=== PATIENT | male | born 1990 | race Caucasian/White ===

== ENCOUNTER 2016-08-12 17:53 | Emergency (ER) | payer OTHER ==
[~2016-08-12] VITALS: Ht 167.6 cm; Wt 66.2 kg
--- NOTE | 2016-08-12 18:52 | ED GENERAL ADULT ---
History of Present Illness General Chief Complaint: ETOH/Drug Related Complaint Stated Complaint: OVERDOSE Source: patient Exam Limitations: no limitations Vital Signs & Intake/Output Vital Signs & Intake/Output Vital Signs Date Time Temp Pulse Resp B/P Pulse O2 O2 Flow FiO2 Ox Delivery Rate 08/12 2004 98.6 94 18 134/88 99 Room Air Room Air 08/12 1804 98.8 108 18 139/89 98 Room Air Allergies Coded Allergies: No Known Allergies (08/12/16) Reconcile Medications No Known Home Medications Triage Note: 25 YO MALE DIANE. PT WAS FOUND UNRESPONSIVE IN CAR IN PARKING LOT WITH NEEDLE STICKING INTO ARM PER EMS. PT RECIEVED 2 NASAL SPRAYS OF NARCAN IN ROUTE IN ER. PT ARRIVES ALERT & ORIENTED X3. DENIE SI/HI. STATES HE HAS BEEN SOBER FOR APPROX 5 YEARS BUT HAS BEEN STRESSED LATELY SO DEICDED TO USE TODAY. PT RA SATS 98% AT THIS TIME. SECUITY AT BEDSIDE FOR WANDING. PT HAS 1 VALUBLES BAG AND 2 BELONING BAGS. PT CALM AND COOPERATIVE. PT CHANGED INTO HOSP SCRUBS Triage Nurses Notes Reviewed? yes HPI: This patient is a 25-year-old male with past medical history including substance abuse who presented to the emergency department today brought in by ambulance after being found unconscious in a car with a needle sticking out of his arm. The patient reported that he had been clean for approximately 1 year from heroin. However, he reported that he has been stressed and used one bag of heroin today. He reported, "I am feeling fine and just wanted go home." He denied any SI or HI. He denied any audio or visual hallucinations. He denied any alcohol use or illicit drug use other than heroin today. The patient denied any headaches, visual changes, chest pain, difficulty breathing, abdominal pain, nausea, or vomiting. (RHODA JOY PA-C) Past History Travel History Traveled to [place] past 21 day No Medical History Any Pertinent Medical History? 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 No (RHODA JOY PA-C) Review of Systems Review of Systems Constitutional: Reports: no symptoms. EENTM: Reports: no symptoms. Respiratory: Reports: no symptoms. Cardiovascular: Reports: no symptoms. GI: Reports: no symptoms. Genitourinary: Reports: no symptoms. Musculoskeletal: Reports: no symptoms. Skin: Reports: no symptoms. Neurological/Psychological: Reports: no symptoms. All Other Systems: Reviewed and Negative (RHODA JOY PA-C) Physical Exam Physical Exam General Appearance: well developed/nourished, no apparent distress, alert, awake Comments: Well-developed well-nourished person in no acute distress HEENT: Normal EENT exam, head normocephalic/atraumatic PERRLA bilaterally Neck: Supple. No lymphadenopathy Back: Normal gait Cardiovascular: Regular rate and rhythm with no murmurs Respiratory: Chest nontender. No respiratory distress. Breath sounds clear to auscultation bilaterally Abdomen: Soft, nontender and nondistended Extremity: Normal and equal pulses. Neuro: Alert oriented x3, motor sensory normal, cranial nerves II through XII grossly intact. Skin: No appreciable rash on exposed skin, skin is warm and dry. Psych: Mood and affect is normal Core Measures ACS in differential dx? No CVA/TIA Diagnosis: No Severe Sepsis Present: No Septic Shock Present: No (RHODA JOY PA-C) Progress Differential Diagnoses I considered the following diagnoses in my evaluation of the patient: [Alcohol intoxication, alcohol withdrawal, drug intoxication, drug overdose, drug withdrawal, major depressive disorder] Initial ED EKG: none Comments: 08/12/2016 8:08:11 PM: Patient is alert and oriented. Walking with a steady gait. Capable of making medical decisions. He has been stable throughout his stay here in the emergency department. No focal neurologic deficits. No respiratory distress. Vitals stable. This patient has a sober ride home. He is refusing detox. No additional complaints. No SI or HI. (RHODA JOY PA-C) Plan of Care: Orders Procedure Date/time Status URINE DRUGS OF ABUSE 08/12 1837 Complete ETHANOL 08/12 1837 Complete COMPREHENSIVE METABOLIC PANEL 08/12 1837 Complete CBC WITHOUT DIFFERENTIAL 08/12 1837 Complete Laboratory Tests 08/12/16 1939: Urine Opiates Screen > 4000.00 H, Methadone Screen < 40, Barbiturate Screen < 60, Ur Phencyclidine Scrn < 6.00, Amphetamines Screen 152, U Benzodiazepines Scrn < 85, Urine Cocaine Screen > 1000 H, Urine Cannabis Screen < 5.00 08/12/16 1853: Anion Gap 14, Estimated GFR > 60, BUN/Creatinine Ratio 14.0, Glucose 112 H, Calcium 9.4, Total Bilirubin 0.5, AST 56, ALT 120 H, Alkaline Phosphatase 53, Total Protein 7.6, Albumin 4.4, Globulin 3.2, Albumin/Globulin Ratio 1.4, CBC w Diff NO MAN DIFF REQ, RBC 5.24, MCV 90.7, MCH 30.3, RDW 13.9, MPV 8.7, Gran % 70.4, Lymphocytes % 20.4 L, Monocytes % 7.7, Eosinophils % 1.2, Basophils % 0.3 , Absolute Granulocytes 6.3, Absolute Lymphocytes 1.8, Absolute Monocytes 0.7 H , Absolute Eosinophils 0.1, Absolute Basophils 0, PUBS MCHC 33.3, Serum Alcohol 14.0 Departure Departure Disposition: HOME OR SELF CARE Condition: Stable Clinical Impression Primary Impression: Heroin abuse Additional Instructions: Return for any worsening symptoms or concerns. Departure Forms: Customer Survey General Discharge Information Prescriptions: Current Visit Scripts No Known Home Medications (RHODA JOY PA-C) PA/REFINERY OPERATOR Co-Sign Statement Statement: ED Attending supervision documentation- [] I saw and evaluated the patient. I have also reviewed all the pertinent lab results and diagnostic results. I agree with the findings and the plan of care as documented in the PA's/REFINERY OPERATOR's documentation. x I have reviewed the ED Record and agree with the PA's/REFINERY OPERATOR's documentation. [] Additions or exceptions (if any) to the PAs/REFINERY OPERATOR's note and plan are summarized below: [] (NGUYỄN STOREY,LUIS) Critical Care Note Critical Care Note Critical Care Time: non-applicable (RHODA JOY PA-C)
[2016-08-12 19:04] LABS: ABSOLUTE BASOPHIL COUNT 0 /CUMM (0.0-0.2); ABSOLUTE EOSINOPHIL COUNT 0.1 /CUMM (0.0-0.7); ABSOLUTE GRANULOCYTE CT 6.3 /CUMM (1.4-6.5); ABSOLUTE LYMPH COUNT 1.8 /CUMM (1.2-3.4); ABSOLUTE MONOCYTE COUNT 0.7 /CUMM (0.10-0.60); BASOPHIL % 0.3 % (0.0-2.0); EOSINOPHIL % 1.2 % (0-5); GRANULOCYTE % 70.4 % (42.2-75.2); HEMATOCRIT 47.6 % (42-52); MEAN CORPUSCULAR HGB 30.3 PG (27.0-31.0); MEAN CORPUSCULAR HGB CONC 33.3 G/DL (33.0-37.0); MEAN CORPUSCULAR VOLUME 90.7 FL (80.0-94.0); MEAN PLATELET VOLUME 8.7 FL (7.4-10.4); PLATELET COUNT 255 /CUMM (130-400); RBC DISTRIBUTION WIDTH 13.9 % (11.5-14.5); RED BLOOD CELL CT 5.24 /CUMM (4.70-6.10); WHITE BLOOD CELL COUNT 8.9 /CUMM (4.8-10.8)
[2016-08-12 20:05] VITALS: BP 134/88
== END 2016-08-12 20:28 ==
LOC: ERH 17:53
PROVIDERS: Physician Assistant
DX: F11.10 Opioid abuse, uncomplicated (principal)
CPT/HCPCS: 80307; G0480